=== PATIENT | male | born 1995 | race African-American/Black ===

== ENCOUNTER 2018-01-09 11:31 | Emergency (ER) | payer OTHER ==
[2018-01-09] MEDS: PERCOCET 5MG/325MG TAB PO (13:23)
[2018-01-09] MEDS ORDERED: METOCLOPRAMIDE INJ 10MG/2ML VIAL (J2765) IV (14:00)
== END 2018-01-09 14:20 | disposition home or self-care (01) ==
LOC: M ED 11:31
DX: S43.102A Unspecified dislocation of left acromioclavicular joint, initial encounter (principal); V28.4XXA Motorcycle driver injured in noncollision transport accident in traffic accident, initial encounter; Y92.410 Unspecified street and highway as the place of occurrence of the external cause; F17.210 Nicotine dependence, cigarettes, uncomplicated
CPT/HCPCS: 73010